=== PATIENT | male | born 1985 | race Two or more races ===

== ENCOUNTER 2019-12-02 09:45 | Observation (INO) | payer MEDICAID ==
[~2019-12-02] VITALS: Ht 188 cm; Wt 120.2 kg
[2019-12-02] MEDS ORDERED: MORPHINE SULFATE 4 MG/ML CPJ (NOT FOR IM USE) IV STA (10:16)
[2019-12-02] MEDS ORDERED: ONDANSETRON HCL 4MG/2ML INJ IV STA (10:16)
[2019-12-02 11:04] LABS: CLARITY URINE CLEAR (CLEAR); COLOR URINE YELLOW (YELLOW); KETONES URINE NEGATIVE (NEGATIVE); LEUKOCYTE ESTERASE URINE NEGATIVE (NEGATIVE); NITRITE URINE NEGATIVE (NEGATIVE); OCCULT BLOOD URINE 2+ (NEGATIVE); PROTEIN URINE NEGATIVE (NEGATIVE); SPECIFIC GRAVITY URINE 1.012 (1.005-1.030); UROBILINOGEN URINE 0.2 E.U./dL (0.2-1.0)
[2019-12-02 11:09] LABS: CHLORIDE 103 mEq/L (98-107)
[2019-12-02 11:10] LABS: BASOPHILS % 0.4 % (0.0-2.0); EOSINOPHILS % 0.1 % (0.0-5.0); HEMATOCRIT. 45.8 % (42.0-52.0); HEMOGLOBIN. 15.4 g/dL (14.0-18.0); LYMPHOCYTES % 13.1 % (20.0-50.0); MEAN CORPUSCULAR HEMOGLOBIN 29.7 pg (28.0-32.0); MEAN CORPUSCULAR VOLUME 88.4 fL (80.0-94.0); MEAN PLATELET VOLUME 7.8 fl (7.4-10.4); MONOCYTES % 9.7 % (2.0-8.0); NEUTROPHILS % 76.7 % (40.0-76.0); PLATELET 275 x1000/uL (130-400); RED BLOOD CELL COUNT 5.18 mill/uL (4.7-6.1); RED CELL DISTRIBUTION WIDTH 12.6 % (11.6-14.6)
[2019-12-02 11:28] LABS: INR 1.1; PROTHROMBIN TIME 12.3 sec (9.6-11.0)
[2019-12-02] MEDS ORDERED: SKIN ADHESIVE 0.7 GM EA TOP ONE ×2 (11:33→13:04)
[2019-12-02] MEDS ORDERED: BUPIVACAINE HCL 0.5% (5MG/ML) 50ML ONE (11:34)
[2019-12-02] MEDS ORDERED: DEXT 5%/0.45% NACL KCL 20MEQ/L 1,000 ML IV SCH (12:14)
[2019-12-02] MEDS ORDERED: MORPHINE SULFATE 4 MG/ML CPJ (NOT FOR IM USE) IV PRN (12:15)
[2019-12-02] MEDS ORDERED: ONDANSETRON HCL 4MG/2ML INJ IV PRN ×2 (12:15→12:45)
[2019-12-02] MEDS ORDERED: MORPHINE SULFATE 2 MG/ML CPJ (NOT FOR IM USE) IV PRN (12:15)
[2019-12-02] MEDS ORDERED: HYDROCODONE/ACETAMINOPHEN 5/325MG TABLET PO PRN ×2 (12:15)
[2019-12-02] MEDS ORDERED: FENTANYL CITRATE/PF 50MCG/ML 2ML VIAL ONE ×2 (12:16→13:13)
[2019-12-02] MEDS ORDERED: NEOSTIGMINE METHYLSULFATE 1MG/ML 10 ML VIAL ONE (12:16)
[2019-12-02] MEDS ORDERED: GLYCOPYRROLATE 0.2 MG/ML 2ML VIAL ONE ×2 (12:17→13:02)
[2019-12-02] MEDS ORDERED: MIDAZOLAM HCL 2 MG/2 ML VIAL ONE (12:17)
[2019-12-02] MEDS ORDERED: PROPOFOL 200MG/20ML VIAL IV ONE (12:17)
[2019-12-02] MEDS ORDERED: ROCURONIUM BROMIDE 10MG/ML VIAL 5ML IV ONE (12:17)
[2019-12-02] MEDS ORDERED: DEXAMETHASONE 4MG/ML 1ML VIAL ONE (12:41)
[2019-12-02] MEDS ORDERED: HYDROMORPHONE HCL/PF 2MG/ML CPJ IV PRN (12:45)
[2019-12-02] MEDS ORDERED: MEPERIDINE HCL/PF 25MG/ML CPJ IV PRN (12:45)
[2019-12-02] MEDS ORDERED: LABETALOL 5MG/ML SYR 20 MG/4 ML SYRINGE IV PRN (12:45)
[2019-12-02] MEDS ORDERED: PIPERACILLIN/TAZOBACTAM 3.375 G in DEXT 5% WATER 100 ML IV SCH (12:45)
[2019-12-02 14:54] VITALS: BP 144/77
[2019-12-02] MEDS ORDERED: INFLUENZA VIRUS VACCINE(AFLURIA) 0.5ML SYR IM ONE (15:30)
[2019-12-02 16:00] VITALS: BP 119/65
[2019-12-02 20:00] VITALS: BP 143/65
[2019-12-03] VITALS: BP 119/52
[2019-12-03 04:19] VITALS: BP 139/86
[2019-12-03] MEDS ORDERED: INFLUENZA VIRUS VACCINE(AFLURIA) 0.5ML SYR IM ONE (07:00)
[2019-12-03 08:00] VITALS: BP 112/79
[2019-12-03 10:00] VITALS: BP 112/70
== END 2019-12-03 11:00 | disposition home or self-care (01) ==
LOC: ER 09:45 → ORIP 11:55 → 6EST 15:14
PROVIDERS: ADMIT Surgery; ATTEND Surgery
DX: K35.80 Unspecified acute appendicitis (principal); R42 Dizziness and giddiness
CPT/HCPCS: 36415; 44970; 74176; 80053; 81003; 83690; 85025; 85610; 88304; 90471; 90686; 96374; 96375; 99284; G0378; J1100; J2250; J2270; J2405; J2543; J2704; J2710; J3010; J3490; J7030; J7060